=== PATIENT | male | born 1965 | race Caucasian/White ===

== ENCOUNTER 2023-05-09 08:54 | Emergency (ER) | payer OTHER ==
[2023-05-09 09:27] LABS: #Basophils 0.1 thou/uL (0.0-0.2); #Eosinphils 0.1 thou/uL (0.0-0.7); #Neutrophils 7.5 thou/uL (1.40-6.50); %Basophils 0.4 % (0.0-1.0); %Eosinophils 1.2 % (0.0-10.0); %Lymphocytes 25.8 % (21.0-51.0); %Monocytes 8.7 % (0.0-10.0); %Neutrophils 63.6 % (42.0-75.0); Hematocrit 46.7 % (42.0-52.0); Hemoglobin 15.7 g/dL (14.0-18.0); Mean Corpuscular HGB CONC 33.6 g/dL (32.0-36.0); Mean Corpuscular Hemoglobin 32.3 pg (27.0-31.0); Mean Corpuscular Volume 96.1 fl (78.0-98.0); Mean Platelet Volume 9.9 fL (7.4-10.4); Platelet Count 199 10x3/uL (130-400); RBC Distribution Width 13.7 % (11.5-14.5); Red Blood Cell (RBC) Count 4.86 mill/uL (4.70-6.10); White Blood Cell (WBC) Count 11.8 10x3/uL (4.8-10.8)
[2023-05-09 09:53] LABS: Troponin I Less than 0.010 ng/mL (< 0.028)
[2023-05-09 09:56] LABS: ALT (SGPT) 30 U/L (8-55); AST (SGOT) 24 U/L (5-34); Albumin 4.3 g/dL (3.5-5.0); Alkaline Phosphatase 57 U/L (40-110); Anion Gap 12 mmol/L (10-20); BUN (Urea Nitrogen) 15 mg/dL (8.4-25.7); Bilirubin, Total 0.9 mg/dL (0.2-1.2); Calc. Creatinine Clearance 0 mL/min (70-130); Calcium 9.5 mg/dL (7.8-10.44); Carbon Dioxide 25 mmol/L (22-29); Chloride 104 mmol/L (98-107); Estimated GFR 101; Glucose 103 mg/dL (70-105); Potassium 4.2 mmol/L (3.5-5.1); Protein, Total 7.3 g/dL (6.0-8.3); Sodium 137 mmol/L (136-145)
[2023-05-09] MEDS ORDERED: Aspirin Chewable 81 MG TAB ONE (10:32)
[2023-05-09 11:20] LABS: Troponin I Less than 0.010 ng/mL (< 0.028)
== END 2023-05-09 11:59 | disposition home or self-care (01) ==
LOC: ERS 08:54
DX: R07.9 Chest pain, unspecified (principal); F17.210 Nicotine dependence, cigarettes, uncomplicated
CPT/HCPCS: 36415; 71045; 80053; 84484; 85025; 85379; 93005

== ENCOUNTER 2024-08-17 05:37 | Observation (INO) | payer BC, OTHER ==
[2024-08-17] MEDS ORDERED: Vancomycin 1 GM VIAL ONE (06:23)
[2024-08-17] MEDS ORDERED: Thrombin 5000 UNITS/5 ML VIAL ONE (06:23)
[2024-08-17] MEDS ORDERED: Rocuronium Bromide 10 MG/ML (10ML VIAL) ONE (06:52)
[2024-08-17] MEDS ORDERED: Lidocaine 1% PF 5 ML VIAL ONE (06:52)
[2024-08-17] MEDS ORDERED: PROPOFOL 20 ML ONE (06:52)
[2024-08-17] MEDS ORDERED: Fentanyl 250 MCG/5 ML VIAL ONE (06:52)
[2024-08-17] MEDS ORDERED: CEFAZOLIN 2 GM VIAL ONE (07:21)
[2024-08-17] MEDS ORDERED: Sterile Water 10 ML ONE (07:50)
[2024-08-17] MEDS ORDERED: PHENYLEPHRINE-NS 100 MCG/ML 10 ML SYRINGE ONE (08:23)
[2024-08-17] MEDS ORDERED: Ketorolac Tromethamine 30 MG (1 mL) VIAL ONE (08:24)
[2024-08-17] MEDS ORDERED: Dexamethasone 20 MG/5 ML VIAL ONE (08:24)
[2024-08-17] MEDS ORDERED: Ondansetron PF 4 MG/2 ML Vial ONE (08:24)
[2024-08-17] MEDS ORDERED: SUGAMMADEX SODIUM 200 MG/2 ML VIAL ONE (10:29)
[2024-08-17] MEDS ORDERED: Lidocaine 2% PF 5 ML VIAL ONE (10:29)
[2024-08-17] MEDS ORDERED: diphenhydrAMINE 25 MG CAP PO PRN (10:43)
[2024-08-17] MEDS ORDERED: Milk Of Magnesia 30 ML UDCUP PO PRN (10:43)
[2024-08-17] MEDS ORDERED: Acetaminophen/Codeine 30-300mg Tablet PO PRN (10:43)
[2024-08-17] MEDS ORDERED: Acetaminophen 325 MG TAB PO PRN (10:43)
[2024-08-17] MEDS ORDERED: Ondansetron PF 4 MG/2 ML Vial IVP PRN (10:43)
[2024-08-17] MEDS ORDERED: traMADol HCl 50 MG TAB PO PRN (10:43)
[2024-08-17] MEDS ORDERED: hydrALAZINE 20 MG/ML VIAL SLOW IVP PRN (10:44)
[2024-08-17] MEDS ORDERED: fentaNYL 50 mcg/mL 1 mL Vial ONE (11:40)
[2024-08-17] MEDS: HYDROcodone/Acetaminophen 7.5/325 mg Tablet PO PRN (16:52)
[2024-08-17] MEDS: tiZANidine HCl 4 MG TAB PO PRN (16:52)
[2024-08-17] MEDS: CEFAZOLIN 2 GM in Sodium Chloride 0.9% 100 ML IVPB SCH (16:53)
[2024-08-17] MEDS: Sodium Chloride 0.9% 1,000 ML IV SCH (16:54)
[2024-08-17 19:33] VITALS: BMI 29.7
[2024-08-17] MEDS: Morphine 2 MG/ML VIAL SLOW IVP PRN (20:27)
[2024-08-18 08:18] VITALS: BP 149/85; TEMP 97.3
== END 2024-08-18 11:33 | disposition home or self-care (01) ==
LOC: SDC 05:37 → SURG A 14:57
PROVIDERS: ADMIT Neurological Surgery; ATTEND Surgery
PROC: 01NB0ZZ Release Lumbar Nerve, Open Approach (ICD-10-PCS; principal; 2024-08-18)
DX: M48.062 Spinal stenosis, lumbar region with neurogenic claudication (principal); E66.9 Obesity, unspecified; Z87.891 Personal history of nicotine dependence; Z68.29 Body mass index [BMI] 29.0-29.9, adult
CPT/HCPCS: J1100; J1885; J2272; J2405; J2704; J3010; J3370; J7030